=== PATIENT | male | born 1985 | race Caucasian/White ===

== ENCOUNTER 2017-05-26 18:56 | Emergency (ER) | payer OTHER ==
[~2017-05-26] VITALS: Ht 167.6 cm; Wt 75.0 kg
[2017-05-26 18:57] VITALS: BP 123/77; PULSE 88; RESP 20; TEMP 97.8; O2SAT 100
[2017-05-26] MEDS ORDERED: SODIUM CHLORIDE 0.9% FLUSH 10 ML FLUSH IVF PRN (20:45)
[2017-05-26] MEDS ORDERED: SODIUM CHLOR 0.9% 1000 ML INJ 1,000 ML IV ONE (20:45)
--- NOTE | 2017-05-26 21:09 | PD ---
HPI Chief Complaint: General Weakness Time Seen by Provider: 20:19 Travel History International Travel<30 days: No Contact w/Intl Traveler<30days: No Traveled to known affect area: No History of Present Illness HPI Patient is a 32-year-old male who presents to emergency complaints of dizziness. Patient reports that he was sitting at his desk this afternoon and all of a sudden felt dizzy. Reports that he had a witnessed sensation throughout his body and felt generalized weakness. Patient reports that he feels fine at this time, reports complete resolution of symptoms, reports "it was just weird because it's never happened to me before." Patient denies any lightheadedness or dizziness, denies any vision changes, denies any chest pain or shortness breath. Patient with no abdominal pain, nausea vomiting and diarrhea. Patient with no fevers or chills. Patient with no complaints at this time. [facility] Past Medical History Medical History: Denies Significant Hx Past Surgical History Surgical History: No Previous Surgery Social History Alcohol Use: No Tobacco Use: No Substance Use: No Allergies-Medications (Allergen,Severity, Reaction): Coded Allergies: No Known Allergies (Unverified , 05/26/17) Review of Systems General / Constitutional: No: Fever Eyes: No: Visual changes HENT: Positive: Lightheadedness, No: Headaches Cardiovascular: No: Chest Pain or Discomfort Respiratory: No: Shortness of Breath Gastrointestinal: No: Abdominal Pain Genitourinary: No: Dysuria Musculoskeletal: No: Pain Skin: No Rash Neurologic: Positive: Dizziness, No: Weakness, Syncope, Focal Abnormalities, Coordination Problem, Ataxia, Headache, Seizures, Sensory Disturbance Psychiatric: No: Depression Endocrine: No: Polydipsia Hematologic/Lymphatic: No: Easy Bruising Physical Exam Narrative GENERAL: NAD SKIN: Focused skin assessment warm/dry. HEAD: Atraumatic. Normocephalic. EYES: Pupils equal and round. No scleral icterus. No injection or drainage. ENT: No nasal bleeding or discharge. Mucous membranes pink and moist. NECK: Trachea midline. No JVD. CARDIOVASCULAR: Regular rate and rhythm. No murmur appreciated. RESPIRATORY: No accessory muscle use. Clear to auscultation. Breath sounds equal bilaterally. GASTROINTESTINAL: Abdomen soft, non-tender, nondistended. Hepatic and splenic margins not palpable. MUSCULOSKELETAL: No obvious deformities. No clubbing. No cyanosis. No edema. NEUROLOGICAL: Awake and alert. No obvious cranial nerve deficits. Motor grossly within normal limits. Normal speech. CN 2-12 grossly intact with no neurological deficits PSYCHIATRIC: Appropriate mood and affect; insight and judgment normal. Data Data Last Documented VS Vital Signs Date Time Temp Pulse Resp B/P (MAP) Pulse Ox O2 Delivery O2 Flow Rate FiO2 05/26/17 22:03 68 71 139/85 (103) 125/82 (96) 05/26/17 22:02 20 05/26/17 18:57 97.8 100 Orders Orders Basic Metabolic Panel (Bmp) (05/26/17 20:38) Complete Blood Count With Diff (05/26/17 20:38) Iv Access Insert/Monitor (05/26/17 20:38) Sodium Chloride 0.9% Flush (Ns Flush) (05/26/17 20:45) Orthostatic Vital Signs (05/26/17 20:38) Sodium Chlor 0.9% 1000 Ml Inj (Ns 1000 M (05/26/17 20:45) Urinalysis - C+S If Indicated (05/26/17 21:44) Chest, Single Ap (05/26/17 22:09) Labs Laboratory Tests Test 05/26/17 20:45 05/26/17 21:50 White Blood Count 16.5 TH/MM3 Red Blood Count 5.29 MIL/MM3 Hemoglobin 14.1 GM/DL Hematocrit 43.9 % Mean Corpuscular Volume 82.9 FL Mean Corpuscular Hemoglobin 26.6 PG Mean Corpuscular Hemoglobin Concent 32.1 % Red Cell Distribution Width 13.6 % Platelet Count 220 TH/MM3 Mean Platelet Volume 9.5 FL Neutrophils (%) (Auto) 84.3 % Lymphocytes (%) (Auto) 10.2 % Monocytes (%) (Auto) 4.8 % Eosinophils (%) (Auto) 0.3 % Basophils (%) (Auto) 0.4 % Neutrophils # (Auto) 13.9 TH/MM3 Lymphocytes # (Auto) 1.7 TH/MM3 Monocytes # (Auto) 0.8 TH/MM3 Eosinophils # (Auto) 0.0 TH/MM3 Basophils # (Auto) 0.1 TH/MM3 CBC Comment DIFF FINAL Differential Comment Blood Urea Nitrogen 12 MG/DL Creatinine 1.20 MG/DL Random Glucose 126 MG/DL Calcium Level 8.9 MG/DL Sodium Level 137 MEQ/L Potassium Level 4.0 MEQ/L Chloride Level 102 MEQ/L Carbon Dioxide Level 29.7 MEQ/L Anion Gap 5 MEQ/L Estimat Glomerular Filtration Rate 69 ML/MIN Urine Color COLORLESS Urine Turbidity CLEAR Urine pH 7.0 Urine Specific [place] 1.001 Urine Protein NEG mg/dL Urine Glucose (UA) NEG mg/dL Urine Ketones NEG mg/dL Urine Occult Blood NEG Urine Nitrite NEG Urine Bilirubin NEG Urine Urobilinogen LESS THAN 2.0 MG/DL Urine Leukocyte Esterase NEG Microscopic Urinalysis Comment CULT NOT INDICATED MDM Medical Decision Making Medical Screen Exam Complete: Yes Emergency Medical Condition: Yes Interpretation(s) Vital Signs Date Time Temp Pulse Resp B/P (MAP) Pulse Ox O2 Delivery O2 Flow Rate FiO2 05/26/17 18:57 97.8 88 20 123/77 (92) 100 Differential Diagnosis Differential includes vertigo, electrolyte abnormality Narrative Course Patient is a 32-year-old male who presents to emergency with dizziness and generalized weakness which occurred this afternoon while at work. Patient reports that symptoms lasted for a few hours and resolved on its own. Patient currently with no complaints at this time. Patient with a normal neuro exam. Patient asymptomatic. CBC, BMP ordered. Will monitor patient. Vital Signs Date Time Temp Pulse Resp B/P (MAP) Pulse Ox O2 Delivery O2 Flow Rate FiO2 05/26/17 22:03 68 71 139/85 (103) 125/82 (96) 05/26/17 22:02 74 20 132/77 (95) 05/26/17 18:57 97.8 88 20 123/77 (92) 100 Laboratory Tests Test 05/26/17 20:45 05/26/17 21:50 White Blood Count 16.5 TH/MM3 (4.0-11.0) Red Blood Count 5.29 MIL/MM3 (4.50-5.90) Hemoglobin 14.1 GM/DL (13.0-17.0) Hematocrit 43.9 % (39.0-51.0) Mean Corpuscular Volume 82.9 FL (80.0-100.0) Mean Corpuscular Hemoglobin 26.6 PG (27.0-34.0) Mean Corpuscular Hemoglobin Concent 32.1 % (32.0-36.0) Red Cell Distribution Width 13.6 % (11.6-17.2) Platelet Count 220 TH/MM3 (150-450) Mean Platelet Volume 9.5 FL (7.0-11.0) Neutrophils (%) (Auto) 84.3 % (16.0-70.0) Lymphocytes (%) (Auto) 10.2 % (9.0-44.0) Monocytes (%) (Auto) 4.8 % (0.0-8.0) Eosinophils (%) (Auto) 0.3 % (0.0-4.0) Basophils (%) (Auto) 0.4 % (0.0-2.0) Neutrophils # (Auto) 13.9 TH/MM3 (1.8-7.7) Lymphocytes # (Auto) 1.7 TH/MM3 (1.0-4.8) Monocytes # (Auto) 0.8 TH/MM3 (0-0.9) Eosinophils # (Auto) 0.0 TH/MM3 (0-0.4) Basophils # (Auto) 0.1 TH/MM3 (0-0.2) CBC Comment DIFF FINAL Differential Comment Blood Urea Nitrogen 12 MG/DL (7-18) Creatinine 1.20 MG/DL (0.60-1.30) Random Glucose 126 MG/DL (74-106) Calcium Level 8.9 MG/DL (8.5-10.1) Sodium Level 137 MEQ/L (136-145) Potassium Level 4.0 MEQ/L (3.5-5.1) Chloride Level 102 MEQ/L (98-107) Carbon Dioxide Level 29.7 MEQ/L (21.0-32.0) Anion Gap 5 MEQ/L (5-15) Estimat Glomerular Filtration Rate 69 ML/MIN (>89) Urine Color COLORLESS (YELLW/STRAW) Urine Turbidity CLEAR (CLEAR) Urine pH 7.0 (5.0-8.5) Urine Specific [place] 1.001 (1.002-1.035) Urine Protein NEG mg/dL (NEG-TRACE) Urine Glucose (UA) NEG mg/dL (NEG) Urine Ketones NEG mg/dL (NEG) Urine Occult Blood NEG (NEG) Urine Nitrite NEG (NEG) Urine Bilirubin NEG (NEG) Urine Urobilinogen LESS THAN 2.0 MG/DL (LESS Urine Leukocyte Esterase NEG (NEG) Microscopic Urinalysis Comment CULT NOT INDICATED Last Impressions Chest X-Ray 05/26/173 Signed Impressions: Service Date/Time: Friday, May 26, 2017 22:05 - CONCLUSION: No evidence of acute cardiopulmonary disease. Manuel Garcia MD Patient reevaluated, patient feeling much better at this time. Patient with complete resolution of symptoms. WBC 16.5 - this could be secondary to stress response versus viral syndrome. He is well-appearing with no obvious signs of bacterial infection at this time. Discussed with patient need to return to the emergency room if he develops any fevers or chills or return of symptoms. He will follow up with his primary care doctor and will return to ER as needed. Patient thankful for care Diagnosis Primary Impression: General weakness Additional Impressions: Dizziness Leukocytosis Qualified Codes: D72.829 - Elevated white blood cell count, unspecified Patient Instructions: General Instructions Additional Instructions: Please return to ER as needed Please follow up with your primary care doctor Return to ER if symptoms worsen or persist or if you develop fever/chills Please drink plenty of fluids Please have your primary care doctor repeat your lab work Disposition: 01 DISCHARGE HOME Condition: Stable Gabrielle Recinos DO May 26, 2017 21:09
[2017-05-26 21:22] LABS: AUTOMATED NEUTROPHIL # 13.9 TH/MM3 (1.8-7.7); BASOPHIL # 0.1 TH/MM3 (0-0.2); BASOPHIL % 0.4 % (0.0-2.0); EOSINOPHIL % 0.3 % (0.0-4.0); HEMATOCRIT 43.9 % (39.0-51.0); HEMO FLAGS DIFF FINAL; LYMPH % 10.2 % (9.0-44.0); LYMPHOCYTE # 1.7 TH/MM3 (1.0-4.8); MEAN CELL VOLUME 82.9 FL (80.0-100.0); MEAN CORPUSCULAR HEMOGLOBIN 26.6 PG (27.0-34.0); MEAN CORPUSCULAR HGB CONC 32.1 % (32.0-36.0); MONO % 4.8 % (0.0-8.0); NEUT % 84.3 % (16.0-70.0); PLATELET COUNT 220 TH/MM3 (150-450); RED BLOOD COUNT 5.29 MIL/MM3 (4.50-5.90); RED CELL DISTRIBUTION WIDTH 13.6 % (11.6-17.2); WHITE BLOOD COUNT 16.5 TH/MM3 (4.0-11.0)
[2017-05-26 21:30] LABS: BICARBONATE 29.7 MEQ/L (21.0-32.0)
[2017-05-26 22:02] VITALS: BP 132/77; RESP 20
[2017-05-26 22:03] VITALS: BP_SYST 125; BP_SYST 139; BP_DIAS 82; BP_DIAS 85
--- NOTE | 2017-05-26 22:39 | RADRPT ---
EXAM DATE/TIME: 05/26/2017 22:05 [place] COMPARISON: No previous studies available for comparison. INDICATIONS : Shortness of breath and some lightheadedness earlier in the day. MEDICAL HISTORY : None. SURGICAL HISTORY : None. ENCOUNTER: Initial ACUITY: 1 day PAIN SCORE: 0/10 LOCATION: Bilateral chest FINDINGS: A single view of the chest demonstrates the lungs to be symmetrically aerated without evidence of mas s, infiltrate or effusion. The cardiomediastinal contours are unremarkable. Osseous structures are intact. CONCLUSION: No evidence of acute cardiopulmonary disease. Manuel Garcia MD on May 26, 2017 at 22:38 Board Certified Radiologist. This report was verified electronically.
[2017-05-26 22:50] LABS: BLOOD, URINE NEG (NEG); GLUCOSE,URINE NEG (NEG); KETONE, URINE NEG (NEG); NITRITE,URINE NEG (NEG); URINE COLOR COLORLESS (YELLW/STRAW)
[2017-05-26 22:55] LABS: COMMENT (UR) CULT NOT INDICATED; CULTURE IF INDICATED CULT NOT INDICATED
== END 2017-05-26 23:19 | disposition home or self-care (01) ==
LOC: NEPD 18:56
DX: R53.1 Weakness (principal); R42 Dizziness and giddiness; D72.829 Elevated white blood cell count, unspecified
CPT/HCPCS: 71010; 80048; 81001; 85025; 96360; 99284; J7030